=== PATIENT | female | born 1965 | race Caucasian/White ===

== ENCOUNTER 2017-10-13 07:05 | Observation (INO) | payer OTHER ==
[~2017-10-13] VITALS: Ht 162.6 cm; Wt 72.4 kg
[~2017-10-13 07:05] MED LIST: NORCO1 TA2 PO; PRI20 PO
[2017-10-13 08:20] LABS: PLATELET COUNT 233 x10^3mcL (130-400); RED CELL DISTRIBUTION WIDTH 13.5 % (11.5-14.5)
[2017-10-13 08:32] LABS: CALCIUM 9.2 mg/dL (8.5-10.1); CARBON DIOXIDE 26.9 mmol/L (21-32); CHLORIDE SERUM 103 mmol/L (98-107); GFR1 > 60 mL/min; GLUCOSE SERUM 92 mg/dL (74-106); POTASSIUM SERUM 3.9 mmol/L (3.5-5.1); SODIUM SERUM 141 mmol/L (136-145)
[2017-10-13 08:37] LABS: ALBUMIN 4.3 g/dL (3.4-5.0); ALKALINE PHOSPHATASE 121 U/L (46-116); ALT/SGPT 66 U/L (14-59); AST/SGOT 49 U/L (15-37); BILIRUBIN TOTAL 1.15 mg/dL (0.20-1.00)
[2017-10-13 12:05] LABS: T3 TOTAL 1.12 ng/mL
[2017-10-13 12:08] LABS: PHOSPHOROUS 4.1 mg/dL (2.5-4.9)
[2017-10-13 12:13] LABS: CHOLESTEROL/HDL RATIO 4.6
[2017-10-13 12:15] LABS: FREE T4 1.01 ng/dL (0.76-1.46); T4(THYROXINE) 8.6 ug/dL (4.7-13.3)
[2017-10-13 15:02] VITALS: BP 152/78
[2017-10-13 15:42] LABS: microscopic required? NO
[2017-10-13 15:56] LABS: urine erythrocyte NEGATIVE (NEGATIVE)
[2017-10-13 16:50] VITALS: BP 138/71
[2017-10-13 21:54] VITALS: BP 147/82
[2017-10-14 06:31] VITALS: BP 112/64
[2017-10-14 06:45] LABS: BASOPHIL % 0.8 % (0-2); PLATELET COUNT 221 x10^3mcL (130-400); RED CELL DISTRIBUTION WIDTH 12.7 % (11.5-14.5)
[2017-10-14 06:58] LABS: CALCIUM 8.7 mg/dL (8.5-10.1); CARBON DIOXIDE 27.1 mmol/L (21-32); CHLORIDE SERUM 104 mmol/L (98-107); CREATININE SERUM 0.8 mg/dL (0.6-1.0); GFR1 > 60 mL/min; GLUCOSE SERUM 83 mg/dL (74-106); POTASSIUM SERUM 4.8 mmol/L (3.5-5.1); SODIUM SERUM 140 mmol/L (136-145)
[2017-10-14 10:51] VITALS: BP 107/47
[2017-10-14 15:16] VITALS: BP 107/52
[2017-10-14] MEDS ORDERED: LIPI10 PO (15:27)
[2017-10-14] MEDS ORDERED: NIT0.4 SL (15:28)
[2017-10-14] MEDS ORDERED: ECO81 PO (15:28)
[2017-10-14] MEDS ORDERED: ZESTRIL10 MG PO (15:32)
[2017-10-14] MEDS ORDERED: NORCO1 TA1 PO (16:21)
[2017-10-14] MEDS ORDERED: CLARITIN10 MG PO (18:05)
[2017-10-14] MEDS ORDERED: CLOBETASOL PROP0.05% TOP (18:05)
[2017-10-14] MEDS ORDERED: PROCTOCREAM-HC2.5% TOP (18:05)
[2017-10-14] MEDS ORDERED: KEN10 TOP (18:05)
[2017-10-14] MEDS ORDERED: BENADRYL ALLERG25 M1 PO (18:05)
== END 2017-10-14 18:30 | disposition home or self-care (01) | DRG 205 ==
LOC: ED 07:05 → DU 10:50
PROVIDERS: Emergency Medicine; Family Medicine
DX: M94.0 Chondrocostal junction syndrome [Tietze] (principal); N17.0 Acute kidney failure with tubular necrosis; I10 Essential (primary) hypertension; R73.03 Prediabetes; E78.5 Hyperlipidemia, unspecified; D70.9 Neutropenia, unspecified; L40.4 Guttate psoriasis; Z68.27 Body mass index [BMI] 27.0-27.9, adult; Z91.19 Patient's noncompliance with other medical treatment and regimen
CPT/HCPCS: 83880; 84439; G0378; J1170; J1200; J1885; J2405; J7030; Q0092; Q0162

== ENCOUNTER 2018-03-28 06:48 | Inpatient (IN) | payer OTHER ==
[~2018-03-28] VITALS: Ht 165.1 cm; Wt 72.6 kg
[2018-03-28 06:48] VITALS: Ht 165.1 cm; Wt 72.6 kg
[~2018-03-28 06:48] MED LIST changes: +BENADRYL ALLERG25 M1 PO; +CLARITIN10 MG PO; +CLOBETASOL PROP0.05% TOP; +ECO81 PO; +KEN10 TOP; +LIPI10 PO; +NIT0.4 SL; +NORCO1 TA1 PO; +PROCTOCREAM-HC2.5% TOP; +ZESTRIL10 MG PO
[2018-03-28 07:27] LABS: BASOPHIL % 0.9 % (0-2); PLATELET COUNT 210 x10^3mcL (130-400); RED CELL DISTRIBUTION WIDTH 12.7 % (11.5-14.5)
[2018-03-28 07:43] LABS: CALCIUM 9.1 mg/dL (8.5-10.1); CARBON DIOXIDE 27.8 mmol/L (21-32); CHLORIDE SERUM 105 mmol/L (98-107); CREATININE SERUM 0.8 mg/dL (0.6-1.0); GFR1 > 60 mL/min; GLUCOSE SERUM 109 mg/dL (74-106); SODIUM SERUM 142 mmol/L (136-145)
[2018-03-28 07:46] LABS: ALBUMIN 4.3 g/dL (3.4-5.0); ALKALINE PHOSPHATASE 106 U/L (46-116); ALT/SGPT 27 U/L (14-59); AST/SGOT 20 U/L (15-37); BILIRUBIN TOTAL 1.1 mg/dL (0.20-1.00); TOTAL PROTEIN, SERUM 7.7 g/dL (6.4-8.2)
[2018-03-28 10:32] LABS: CHOLESTEROL/HDL RATIO 2.6; MAGNESIUM 2.1 mg/dL (1.8-2.4); PHOSPHOROUS 3.7 mg/dL (2.5-4.9)
[2018-03-28 10:40] LABS: FREE T4 0.99 ng/dL (0.76-1.46); FREE THYROXINE INDEX 2.3 ug/dL (1.4-4.5); T3 TOTAL 0.98 ng/mL; T4(THYROXINE) 6.9 ug/dL (4.7-13.3)
[2018-03-28] MEDS ORDERED: COZ25 (11:03)
[2018-03-28 15:13] VITALS: BP 134/94
[2018-03-28 16:21] VITALS: BP 118/67
[2018-03-28 21:52] VITALS: BP 114/69
[2018-03-28 22:36] LABS: microscopic required? YES; urine erythrocyte NEGATIVE (NEGATIVE)
[2018-03-29 06:25] VITALS: BP 107/68
[2018-03-29 06:46] LABS: BASOPHIL % 0.9 % (0-2); PLATELET COUNT 189 x10^3mcL (130-400); RED CELL DISTRIBUTION WIDTH 13.5 % (11.5-14.5)
[2018-03-29 06:47] LABS: CALCIUM 8.5 mg/dL (8.5-10.1); CARBON DIOXIDE 25.4 mmol/L (21-32); CHLORIDE SERUM 110 mmol/L (98-107); CREATININE SERUM 0.8 mg/dL (0.6-1.0); GFR1 > 60 mL/min; GLUCOSE SERUM 97 mg/dL (74-106); MAGNESIUM 2.1 mg/dL (1.8-2.4); PHOSPHOROUS 4.1 mg/dL (2.5-4.9); POTASSIUM SERUM 4.4 mmol/L (3.5-5.1); SODIUM SERUM 142 mmol/L (136-145)
[2018-03-29 08:06] VITALS: BP 107/53
[2018-03-29 13:24] VITALS: BP 109/46
[2018-03-29 18:03] VITALS: BP 150/69
[2018-03-29 22:20] VITALS: BP 109/68
[2018-03-30 06:12] VITALS: BP 133/73
[2018-03-30 07:06] LABS: CALCIUM 8.7 mg/dL (8.5-10.1); CARBON DIOXIDE 27.3 mmol/L (21-32); CHLORIDE SERUM 110 mmol/L (98-107); CREATININE SERUM 0.7 mg/dL (0.6-1.0); GFR1 > 60 mL/min; GLUCOSE SERUM 93 mg/dL (74-106); MAGNESIUM 1.9 mg/dL (1.8-2.4); PHOSPHOROUS 3.9 mg/dL (2.5-4.9); POTASSIUM SERUM 4.2 mmol/L (3.5-5.1); SODIUM SERUM 145 mmol/L (136-145)
[2018-03-30 07:49] LABS: BASOPHIL % 0.7 % (0-2); PLATELET COUNT 204 x10^3mcL (130-400)
[2018-03-30 10:00] VITALS: BP 122/69
[2018-03-30] MEDS ORDERED: CLOBETASOL PROP0.05% TOP (13:14)
[2018-03-30 17:15] VITALS: BP 133/80
== END 2018-03-30 18:17 | disposition home or self-care (01) | DRG 313 ==
LOC: ED 06:48 → DU 09:31 → EDBEDREQ 09:31 → DU 09:31 → EDBEDREQSVC 09:34 → DU 11:16
PROVIDERS: Emergency Medicine; Family Medicine; Internal Medicine Gastroenterology
PROC: 0DB68ZX Excision of Stomach, Via Natural or Artificial Opening Endoscopic, Diagnostic (ICD-10-PCS; principal; 2018-03-30 08:00)
PROC: 0D748ZZ Dilation of Esophagogastric Junction, Via Natural or Artificial Opening Endoscopic (ICD-10-PCS; 2018-03-30 08:00)
PROC: 0DJD8ZZ Inspection of Lower Intestinal Tract, Via Natural or Artificial Opening Endoscopic (ICD-10-PCS; 2018-03-30 08:00)
DX: R07.89 Other chest pain (principal); I10 Essential (primary) hypertension; E78.00 Pure hypercholesterolemia, unspecified; R73.03 Prediabetes; R74.0 Nonspecific elevation of levels of transaminase and lactic acid dehydrogenase [LDH]; E78.5 Hyperlipidemia, unspecified; L40.8 Other psoriasis; K21.9 Gastro-esophageal reflux disease without esophagitis; K44.9 Diaphragmatic hernia without obstruction or gangrene; K57.90 Diverticulosis of intestine, part unspecified, without perforation or abscess without bleeding; K64.8 Other hemorrhoids; Z79.899 Other long term (current) drug therapy; Z79.82 Long term (current) use of aspirin; Z82.49 Family history of ischemic heart disease and other diseases of the circulatory system; Z80.3 Family history of malignant neoplasm of breast; Z84.89 Family history of other specified conditions; Z83.79 Family history of other diseases of the digestive system
CPT/HCPCS: 43220; 43235; 45378; 83880; 84439; C1769; J0696; J1200; J1610; J2250; J2310; J2405; J3010; J3490; J7030; Q0092; Q0162

== ENCOUNTER 2018-08-31 06:56 | Emergency (ER) | payer OTHER ==
[~2018-08-31] VITALS: Ht 165.1 cm; Wt 77.1 kg
[~2018-08-31 06:56] MED LIST changes: +COZ25
[2018-08-31 07:06] VITALS: BP 139/76; Ht 165.1 cm; Wt 77.1 kg
== END 2018-08-31 09:16 | disposition home or self-care (01) ==
LOC: ED 06:56
DX: S39.012A Strain of muscle, fascia and tendon of lower back, initial encounter (principal); I10 Essential (primary) hypertension; E78.00 Pure hypercholesterolemia, unspecified; H11.31 Conjunctival hemorrhage, right eye; X50.1XXA Overexertion from prolonged static or awkward postures, initial encounter; Y93.89 Activity, other specified; Y92.89 Other specified places as the place of occurrence of the external cause; Y99.8 Other external cause status

== ENCOUNTER 2019-07-14 06:59 | Emergency (ER) | payer OTHER ==
[~2019-07-14] VITALS: Ht 165.1 cm; Wt 72.6 kg
[2019-07-14 07:04] VITALS: Ht 165.1 cm; Wt 72.6 kg
[2019-07-14 08:11] VITALS: BP 144/69
== END 2019-07-14 08:11 | disposition home or self-care (01) ==
LOC: ED 06:59
DX: H61.21 Impacted cerumen, right ear (principal); H60.91 Unspecified otitis externa, right ear; I10 Essential (primary) hypertension; E78.00 Pure hypercholesterolemia, unspecified

== ENCOUNTER 2019-12-03 22:36 | Emergency (ER) | payer OTHER ==
[~2019-12-03] VITALS: Ht 160 cm; Wt 70.3 kg
[2019-12-03 22:43] VITALS: Ht 160 cm; Wt 70.3 kg
[2019-12-03 23:54] LABS: BASOPHIL % 0.2 % (0-2); PLATELET COUNT 215 x10^3mcL (130-400); RED CELL DISTRIBUTION WIDTH 13.1 % (11.5-14.5)
[2019-12-04 00:09] LABS: CARBON DIOXIDE 22.2 mmol/L (21-32); CHLORIDE SERUM 104 mmol/L (98-107); CREATININE SERUM 0.9 mg/dL (0.6-1.0); GFR1 > 60 mL/min; GLUCOSE SERUM 100 mg/dL (74-106); POTASSIUM SERUM 3.8 mmol/L (3.5-5.1); SODIUM SERUM 140 mmol/L (136-145)
[2019-12-04 00:25] LABS: ALBUMIN 4.1 g/dL (3.4-5.0); ALKALINE PHOSPHATASE 97 U/L (46-116); ALT/SGPT 33 U/L (14-59); AST/SGOT 26 U/L (15-37); BILIRUBIN TOTAL 1.3 mg/dL (0.20-1.00); TOTAL PROTEIN, SERUM 7.8 g/dL (6.4-8.2)
[2019-12-04 05:25] VITALS: BP 118/86
== END 2019-12-04 05:20 | disposition home or self-care (01) ==
LOC: ED 22:36
PROVIDERS: Emergency Medicine
DX: R07.89 Other chest pain (principal); R19.7 Diarrhea, unspecified; I10 Essential (primary) hypertension; E78.00 Pure hypercholesterolemia, unspecified
CPT/HCPCS: J2060; J2405; J7120; Q0092

== ENCOUNTER 2020-09-08 13:40 | Emergency (ER) | payer OTHER ==
[~2020-09-08] VITALS: Ht 165.1 cm; Wt 72.6 kg
[2020-09-08 13:42] VITALS: Ht 165.1 cm; Wt 72.6 kg
[2020-09-08 15:12] VITALS: BP 135/100
== END 2020-09-08 15:12 | disposition home or self-care (01) ==
LOC: ED 13:40
DX: U07.1 COVID-19 (principal); B34.9 Viral infection, unspecified; I10 Essential (primary) hypertension; E78.00 Pure hypercholesterolemia, unspecified
CPT/HCPCS: 87804; U0003